=== PATIENT | male | born 1955 | race Caucasian/White ===

== ENCOUNTER → 2016-08-20 | Outpatient (CLI) | payer MEDICARE ==
--- NOTE | 2016-08-20 15:28 | CT ---
EXAMINATION TYPE: CT soft tissue neck w con DATE OF EXAM: 08/20/2016 2:19 PM COMPARISON: NONE HISTORY: 61 year-old male right upper neck mass. TECHNIQUE: Contiguous axial scanning of the neck performed with IV Contrast, patient injected with 10 0 mL of Omnipaque 300. Coronal/sagittal reconstructions performed. CT DLP: 762.98 mGycm Automated exposure control for dose reduction was used. FINDINGS: Visualized intracranial structures, orbits and globes, and mastoid air cells are clear. Mild mucosal thickening within the right ethmoid air cells. The nasopharynx is clear. Mild bilateral palatine tonsillar hypertrophy. Oropharynx otherwise clear. The glottic and subglottic structures as well as the tracheal column are clear. She'll is upper lungs show mild diffuse bronchial wall thickening suggesting bronchitis or chronic asthma. A left anterior chest wall generator device is present and median sternotomy wires as well. The epiglottis and preve rtebral soft tissues are normal. There is a large mixed solid and cystic 2.6 x 2.7 cm mass along the right parotid tail within the sup erficial lobe. Submandibular glands and thyroid gland are satisfactory. No cervical lymphadenopathy or other suspicious neck masses seen. Bones: Mild multilevel degenerative disc disease. Degenerative changes at the C2 dens articulation. IMPRESSION: 1. MIXED SOLID AND CYSTIC 2.7 CM MASS IN THE RIGHT PAROTID TAIL WITHIN THE SUPERFICIAL LOBE. 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 CONSIDER BIOPSY/EXCISION. 2. MILD BILATERAL PALATINE TONSILLAR HYPERTROPHY.
== END | disposition home or self-care (01) ==
LOC: RADCTMAIN 13:46
PROVIDERS: ATTEND Otolaryngology
DX: K11.6 Mucocele of salivary gland (principal); J35.1 Hypertrophy of tonsils
CPT/HCPCS: 70491; Q9967

== ENCOUNTER 2016-10-02 10:40 | Day surgery (SDC) | payer MEDICARE ==
[2016-09-30 12:56] VITALS: BMI 38.4
[~2016-10-02 10:40] MED LIST: DEXAMETHASONE SOD PHOSPHATE 10 MG/ML 1 ML VIAL IV ONE; DEXAMETHASONE SOD PHOSPHATE 4 MG/ML 1 ML VIAL IV ONE; FAMOTIDINE 20 MG/2 ML VIAL IV ONE; HYDROmorphone 1 MG/ML 1 ML SYRINGE IVP PRN; LACTATED RINGERS 1,000 ML IV SCH; MIDAZOLAM 2 MG/2 ML VIAL IV PRN; ONDANSETRON 4 MG/2 ML VIAL IVP ONE; SCOPOLAMINE 1.5MG/72HR PATCH TRANSDERM ONE; ceFAZolin 1,000 MG in DEXTROSE/WATER 1 50ML.BAG IV ONE
[2016-10-02] MEDS ORDERED: LIDOCAINE 1% 20 ML VIAL (10MG/ML) FOR IV START INTRADERMA ONE (12:29)
[2016-10-02 12:32] VITALS: TEMP 97
[2016-10-02 12:46] LABS: Potassium 4.8 mmol/L (3.5-5.1)
[2016-10-02] MEDS ORDERED: LIDOCAINE 1% INJ 10MG/ML (20 ML MDV) ONE (13:01)
[2016-10-02] MEDS ORDERED: fentaNYL (PF) 50 MCG/ML 2 ML AMP ONE (13:01)
[2016-10-02] MEDS ORDERED: MIDAZOLAM 2 MG/2 ML VIAL ONE (13:01)
[2016-10-02] MEDS ORDERED: PROPOFOL 10 MG/ML 20 ML VIAL IV ONE (13:01)
[2016-10-02] MEDS ORDERED: SUCCINYLCHOLINE CHLORIDE VIAL 200 MG/10 ML VIAL IV ONE (13:01)
[2016-10-02] MEDS ORDERED: LIDOCAINE 1%-EPI 1:100,000 20 ML VIAL SQ ONE (13:23)
[2016-10-02] MEDS ORDERED: BACITRACIN OINT 1 EACH PACKET TOPICAL ONE (14:22)
--- NOTE | 2016-10-02 14:34 | P.OP ---
Date of Procedure: 10/02/16 Preoperative Diagnosis: Right parotid lesion Postoperative Diagnosis: Same Procedure(s) Performed: Right superficial parotidectomy EMG facial nerve monitoring Implants: Anesthesia: SILVERA Surgeon: Adam Ruano Estimated Blood Loss (ml): 5 Pathology: other (Right superficial parotidectomy) Condition: stable Disposition: PACU Indications for Procedure: This is a 61-year-old white male with approximate 4 year history of a slowly enlarging right upper neck mass. 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 Operative Findings: Approximate 3 cm well encapsulated right tail of parotid lesion Description of Procedure: Patient was brought in the operative suite and placed in a supine position. The patient underwent induction of general anesthesia with oral endotracheal intubation without difficulty. The patient was prepped and draped in usual aseptic fashion including using the NIM II facial nerve monitor with the monitors placed and tested and they were working well. 1% lidocaine with 1 100, 000 epinephrine was infused subcutaneously at the incision site. A doubly modified Marco incision was made starting in the lower pre-recur crease and extending down onto the upper neck transversely. This was carried sharply through the skin and subcutaneous tissue as well as the platysma layer. The mass was located just anterior to the sternocleidomastoid muscle and was well delineated. This was mostly in the neck. This was dissected from the surrounding tissue including off of the sternocleidomastoid muscle with identification of the posterior regular nerve which was left intact. Dissection then continued inferiorly and deeply to the lower edge of the posterior digastric muscle. Dissection then continued from lateral to medial at the superior aspect of the mass dissecting the mass from the surrounding parotid tissue with a cuff of normal parotid tissue left where possible. The marginal mandibular branch of the facial nerve was identified just superior to the mass and therefore was dissected from the tissue with blunt dissection. This was left intact. The mass was then ultimately excised from the surrounding tissue grossly entirely and sent for permanent section. The wound was inspected. The marginal mandibular branch of the facial nerve was identified intact and stimulated well 0.5 mA with the nerve probe. Copious irrigation was performed with sterile normal saline. And a 9-Bulgarian round drain was placed through separate stab incision. This was sutured to the skin with a 2-0 silk suture. The platysma and subcutaneous layers were closed with inverted interrupted 5-0 Vicryl suture skin closed with running locking 4-0 Prolene suture bacitracin ointment and a sterile dressing were placed. The patient was then allowed to emerge from general anesthesia having tolerated procedure well was extubated in the operative suite and transferred postoperative recovery area in satisfactory condition.
[2016-10-02 15:15] VITALS: RESP 18
[2016-10-02] MEDS ORDERED: HYDROcodone/APAP 7.5-325MG 1 EACH TAB PO ONE (15:25)
[2016-10-02 15:34] VITALS: BP 136/89; PULSE 75
== END 2016-10-02 15:49 | disposition home or self-care (01) ==
LOC: OR 10:40
PROVIDERS: ATTEND Otolaryngology
DX: D11.0 Benign neoplasm of parotid gland (principal); I10 Essential (primary) hypertension; E78.5 Hyperlipidemia, unspecified; F17.200 Nicotine dependence, unspecified, uncomplicated; Z95.5 Presence of coronary angioplasty implant and graft; Z95.0 Presence of cardiac pacemaker; Z88.8 Allergy status to other drugs, medicaments and biological substances; Z79.899 Other long term (current) drug therapy; Z79.82 Long term (current) use of aspirin
CPT/HCPCS: 80051; 88307; 42415; J2250; J0330; J1100; J2405; J2001; J3010; J0690; J2704

== ENCOUNTER 2019-01-06 20:17 | Emergency (ER) | payer MEDICARE, SELFPAY ==
[2019-01-06 20:25] VITALS: RESP 18
[2019-01-06 21:59] LABS: Basophils # (A) 0.1 k/uL (0-0.2); Basophils % (A) 1 %; Eosinophils # (A) 0.3 k/uL (0-0.7); Eosinophils % (A) 3 %; HCT 39.7 % (39.0-53.0); Lymphocytes # (A) 1.8 k/uL (1.0-4.8); Lymphocytes % (A) 18 %; MCH 30.9 pg (25.0-35.0); MCHC 32.8 g/dL (31.0-37.0); MCV 94.2 fL (80.0-100.0); Monocytes # (A) 0.5 k/uL (0-1.0); Monocytes % (A) 5 %; Neutrophils # (A) 7.3 k/uL (1.3-7.7); Neutrophils % (A) 72 %; Platelet Count 133 k/uL (150-450); RBC 4.21 m/uL (4.30-5.90); RDW 13.4 % (11.5-15.5); WBC 10.1 k/uL (3.8-10.6)
[2019-01-06 22:11] LABS: Albumin 3.7 g/dL (3.5-5.0); Total Protein 6.4 g/dL (6.3-8.2)
[2019-01-06 22:12] LABS: Potassium 4.6 mmol/L (3.5-5.1)
--- NOTE | 2019-01-06 22:12 | XR ---
EXAMINATION TYPE: XR KUB DATE OF EXAM: 01/06/2019 COMPARISON: NONE HISTORY: Pain and bloating TECHNIQUE: 2 views upright FINDINGS: There is no sign of intestinal obstruction or pneumoperitoneum. Fecal pattern is normal. Th ere are no pathologic calcifications. IMPRESSION: Nonacute abdomen.
[2019-01-06 23:20] LABS: Appearance,Urine Clear (Clear); Bilirubin,Urine Negative (Negative); Blood,Urine Negative (Negative); Color,Urine Yellow; Glucose,Urine (UA) Negative (Negative); Ketones,Urine Negative (Negative); Leukocyte Esterase,Urine Negative (Negative); Nitrite,Urine Negative (Negative); PH, Urine 5.5 (5.0-8.0); Protein,Urine Trace (Negative); Specific Gravity,Urine 1.029 (1.001-1.035)
[2019-01-06 23:22] VITALS: BP 137/79; PULSE 68
--- NOTE | 2019-01-06 23:38 | ED ---
Abdominal Pain HPI - General Chief Complaint: Abdominal Pain Stated Complaint: Abdominal Pain Time Seen by Provider: 01/06/19 20:44 Source: patient, EMS Mode of arrival: EMS - History of Present Illness Initial Comments: 63-year-old male patient presents to the emergency department today for evaluation of upper abdominal discomfort. Patient states that approximately 2 hours ago he developed pressure over the upper abdomen. Patient states this did radiate through to the back. Patient denies any nausea, vomiting with this. Denies any fever or chills. Denies any constipation or diarrhea. Patient states he did start metformin 2 days ago. Patient denies any history of ab dominal surgery. Denies chest pain, shortness of breath, dizziness, or weakness. Patient denies any recent rash, fever, chills, shortness breath, chest pain, back pain, numbness, tingling, dizziness, weakness, hematuria, dysuria, urinary urgency, urinary frequency, headache, visual changes, or any other complaints. - Related Data Home Medications Medication Instructions Recorded Confirmed Aspirin 325 mg PO DAILY 09/30/16 01/06/19 Atorvastatin [Lipitor] 80 mg PO HS 09/30/16 01/06/19 Furosemide [Lasix] 40 mg PO DAILY@1700 09/30/16 01/06/19 Ramipril 2.5 mg PO HS 09/30/16 01/06/19 Apremilast [Otezla] 30 mg PO BID 01/06/19 01/06/19 Carvedilol [Coreg] 12.5 mg PO BID 01/06/19 01/06/19 Ezetimibe [Zetia] 10 mg PO HS 01/06/19 01/06/19 Ubidecarenone [Co Q-10] 100 mg PO DAILY 01/06/19 01/06/19 metFORMIN HCL [Glucophage] 500 mg PO BID 01/06/19 01/06/19 Allergies Allergy/AdvReac Type Severity Reaction Status Date / Time sertraline [From Zoloft] AdvReac Confusion Verified 01/06/19 20:48 simvastatin [From Zocor] AdvReac muscle Verified 01/06/19 20:48 cramping Review of Systems ROS Statement: Those systems with pertinent positive or pertinent negative responses have been documented in the HPI. ROS Other: All systems not noted in ROS Statement are negative. Past Medical History Past Medical History: Diabetes Mellitus, Hyperlipidemia, Hypertension, Myocardial Infarction ([place]), Skin Disorder Additional Past Medical History / Comment(s): Hx Psoriasis. Last Myocardial Infarction Date:: 03/1995 History of Any Multi-Drug Resistant Organisms: None Reported Past Surgical History: Coronary Bypass/CABG, Pacemaker Additional Past Surgical History / Comment(s): Triple Bypass Surgery 07/2001. Past Anesthesia/Blood Transfusion Reactions: No Reported Reaction Type of Cardiac Device: Permanent Pacemaker Device Placement Date:: 04/2014 Past Psychological History: No Psychological Hx Reported Smoking Status: Current every day smoker Past Alcohol Use History: Rare Past Drug Use History: None Reported - Past Family History Brother(s) Family Medical History: Cancer Additional Family Medical History / Comment(s): Prostate Cancer. Sister(s) Family Medical History: Cancer Additional Family Medical History / Comment(s): Thyroid Cancer General Exam General appearance: alert, in no apparent distress, other Eye exam: Present: normal appearance, PERRL, EOMI. Absent: scleral icterus, conjunctival injection, periorbital swelling ENT exam: Present: normal exam, normal oropharynx, mucous membranes moist Respiratory exam: Present: normal lung sounds bilaterally. Absent: respiratory distress, wheezes, rales, rhonchi, stridor Cardiovascular Exam: Present: regular rate, normal rhythm, normal heart sounds. Absent: systolic murmur, diastolic murmur, rubs, gallop, clicks GI/Abdominal exam: Present: soft, normal bowel sounds. Absent: distended, tenderness, guarding, rebound, rigid Neurological exam: Present: alert, oriented X3, CN II-XII intact Psychiatric exam: Present: normal affect, normal mood Skin exam: Present: warm, dry, intact, normal color. Absent: rash Course Vital Signs 01/06/19 01/06/19 01/07/19 20:20 23:20 00:12 Temperature 97.4 F L 97.7 F Pulse Rate 67 68 Respiratory 18 18 Rate Blood Pressure 147/79 137/79 O2 Sat by Pulse 99 97 Oximetry Medical Decision Making - Medical Decision Making 63-year-old male patient presents to the emergency department today for evaluation of upper abdominal discomfort. The patient states this started a couple of hours ago. Patient states the symptoms have resolved. Patient does report starting metformin 2 days ago. Denies any fever or chills nausea or vomiting. Physical examination did reveal soft nontender abdomen. Labs revi ewed and are unremarkable. KUB x-ray was obtained and was unremarkable. I did discuss findings and results with the patient. Patient states the symptoms are still relieved. He'll be discharged at this time to follow-up with his primary care physician for recheck in 1-2 days. Return parameters were discussed in detail. He verbalizes understanding and agrees with this plan. - Lab Data Result diagrams: 01/06/19 21:48 01/06/19 21:48 Lab Results 01/06/19 01/06/19 01/06/19 Range/Units 21:48 21:48 23:05 WBC 10.1 (3.8-10.6) k/uL RBC 4.21 L (4.30-5.90) m/uL Hgb 13.0 (13.0-17.5) gm/dL Hct 39.7 (39.0-53.0) % MCV 94.2 (80.0-100.0) fL MCH 30.9 (25.0-35.0) pg MCHC 32.8 (31.0-37.0) g/dL RDW 13.4 (11.5-15.5) % Plt Count 133 L (150-450) k/uL Neutrophils % 72 % Lymphocytes % 18 % Monocytes % 5 % Eosinophils % 3 % Basophils % 1 % Neutrophils # 7.3 (1.3-7.7) k/uL Lymphocytes # 1.8 (1.0-4.8) k/uL Monocytes # 0.5 (0-1.0) k/uL Eosinophils # 0.3 (0-0.7) k/uL Basophils # 0.1 (0-0.2) k/uL Sodium 140 (137-145) mmol/L Potassium 4.6 (3.5-5.1) mmol/L Chloride 105 (98-107) mmol/L Carbon Dioxide 29 (22-30) mmol/L Anion Gap 6 mmol/L BUN 22 H (9-20) mg/dL Creatinine 1.10 (0.66-1.25) mg/dL Est GFR (CKD-EPI)AfAm 83 (>60 ml/min/1.73 sqM) Est GFR (CKD-EPI)NonAf 72 (>60 ml/min/1.73 sqM) Glucose 115 H (74-99) mg/dL Calcium 9.0 (8.4-10.2) mg/dL Total Bilirubin 1.0 (0.2-1.3) mg/dL AST 56 (17-59) U/L ALT 46 (21-72) U/L Alkaline Phosphatase 146 H (38-126) U/L Total Protein 6.4 (6.3-8.2) g/dL Albumin 3.7 (3.5-5.0) g/dL Amylase 83 (30-110) U/L Lipase 261 (23-300) U/L Urine Color Yellow Urine Appearance Clear (Clear) Urine pH 5.5 (5.0-8.0) Ur Specific Isabel 1.029 (1.001-1.035) Urine Protein Trace H (Negative) Urine Glucose (UA) Negative (Negative) Urine Ketones Negative (Negative) Urine Blood Negative (Negative) Urine Nitrite Negative (Negative) Urine Bilirubin Negative (Negative) Urine Urobilinogen 2.0 (<2.0) mg/dL Ur Leukocyte Esterase Negative (Negative) - Radiology Data Radiology results: report reviewed, image reviewed Two-view x-ray of the abdomen is obtained. Report was reviewed in its entirety. Impression by Dr. Marshall shows nonacute abdomen Disposition Clinical Impression: Abdominal pain Disposition: HOME SELF-CARE Condition: Good Instructions (If sedation given, give patient instructions): Abdominal Pain (ED) Additional Instructions: Increase fluids. Rest. Follow-up through primary care physician for recheck in 1-2 days. Return to the emergency department immediately for any new, worsening, or concerning symptoms. Is patient prescribed a controlled substance at d/c from ED?: No Referrals: Fan Garcia MD [Primary Care Provider] - 1-2 days Time of Disposition: 23:38
[2019-01-06] MEDS ORDERED: MAG HYDROX/AL HYDROX/SIMETH 30 ML, HYOSCYAMINE ELIXIR 10 ML, CIMETIDINE HCL 300 MG, LID... PO STA ×4 (23:49)
[2019-01-07 00:13] VITALS: TEMP 97.7
== END 2019-01-07 00:11 | disposition home or self-care (01) ==
LOC: EC 20:17
DX: R10.10 Upper abdominal pain, unspecified (principal); M54.9 Dorsalgia, unspecified; E11.9 Type 2 diabetes mellitus without complications; E78.5 Hyperlipidemia, unspecified; I10 Essential (primary) hypertension; I25.2 Old myocardial infarction; L40.9 Psoriasis, unspecified; F17.200 Nicotine dependence, unspecified, uncomplicated; Z88.8 Allergy status to other drugs, medicaments and biological substances; Z79.82 Long term (current) use of aspirin; Z79.84 Long term (current) use of oral hypoglycemic drugs; Z79.899 Other long term (current) drug therapy; Z95.0 Presence of cardiac pacemaker; Z95.1 Presence of aortocoronary bypass graft
CPT/HCPCS: 36415; 74018; 80053; 81003; 82150; 83690; 85025; 99284

== ENCOUNTER → 2019-11-12 | Outpatient (CLI) | payer MEDICARE ==
[2019-11-12 11:52] LABS: Basophils % (A) 1 %; Eosinophils # (A) 0.3 k/uL (0-0.7); Eosinophils % (A) 3 %; HCT 41.6 % (39.0-53.0); Lymphocytes # (A) 2.9 k/uL (1.0-4.8); Lymphocytes % (A) 38 %; MCH 29.8 pg (25.0-35.0); MCHC 31.2 g/dL (31.0-37.0); MCV 95.4 fL (80.0-100.0); Mean Platelet Volume 8.6; Monocytes # (A) 0.5 k/uL (0-1.0); Monocytes % (A) 6 %; Neutrophils # (A) 3.9 k/uL (1.3-7.7); Neutrophils % (A) 50 %; Platelet Count 165 k/uL (150-450); RBC 4.36 m/uL (4.30-5.90); RDW 13.9 % (11.5-15.5); WBC 7.8 k/uL (3.8-10.6)
== END | disposition home or self-care (01) ==
LOC: LABWHC1 09:57
PROVIDERS: ATTEND Physician Assistant
DX: L40.0 Psoriasis vulgaris (principal); Z79.899 Other long term (current) drug therapy
CPT/HCPCS: 36415; 85025; 86480

== ENCOUNTER 2020-02-28 06:16 | Day surgery (SDC) | payer MEDICARE ==
[2020-02-24 11:51] VITALS: BMI 34.4
[~2020-02-28 06:16] MED LIST changes: -DEXAMETHASONE SOD PHOSPHATE 10 MG/ML 1 ML VIAL IV ONE; -DEXAMETHASONE SOD PHOSPHATE 4 MG/ML 1 ML VIAL IV ONE; -FAMOTIDINE 20 MG/2 ML VIAL IV ONE; -HYDROmorphone 1 MG/ML 1 ML SYRINGE IVP PRN; -MIDAZOLAM 2 MG/2 ML VIAL IV PRN; -ONDANSETRON 4 MG/2 ML VIAL IVP ONE; -SCOPOLAMINE 1.5MG/72HR PATCH TRANSDERM ONE; -ceFAZolin 1,000 MG in DEXTROSE/WATER 1 50ML.BAG IV ONE
[2020-02-28 06:39] VITALS: TEMP 97.5
[2020-02-28] MEDS ORDERED: LIDOCAINE 1% (10MG/ML) FOR IV START INTRADERMA ONE (06:39)
[2020-02-28] MEDS ORDERED: LACTATED RINGERS 1,000 ML IV ONE (06:39)
[2020-02-28 06:49] LABS: Glucose,Whole Blood 104 mg/dL (75-99)
[2020-02-28] MEDS ORDERED: LIDOCAINE 1% INJ 10MG/ML (20 ML MDV) ONE (07:40)
[2020-02-28] MEDS ORDERED: PROPOFOL 10 MG/ML 20 ML VIAL IV ONE (07:40)
--- NOTE | 2020-02-28 08:18 | P.PCN ---
Date of Procedure: 02/28/20 Description of Procedure: BRIEF HISTORY: Patient is a 64-year-old male presented for outpatient colonoscopy for screening for neoplasm of the colon. No family history of colon cancer. No change in bowel habits or blood per rectum. No prior colonoscopy. PROCEDURE PERFORMED: Colonoscopy with polypectomy. PREOPERATIVE DIAGNOSIS: Screening for malignant neoplasm of the colon, no prior colonoscopy. ESTIMATED BLOOD LOSS: Minimal. IV sedation per Anesthesia. PROCEDURE: After informed consent was obtained, the patient, was brought into the endoscopy unit. IV sedation was administered by Anesthesia under continuous monitoring. Digital rectal examination was normal. Initially the Olympus CF-190 flexible video colonoscope was then inserted in the rectum, gradually advanced into the cecum without any difficulty. Careful examination was performed as the scope was gradually being withdrawn. Ileocecal valve and the appendiceal orifice were visualized and appeared normal. Prep was excellent. Mucosa of the cecum, ascending colon, transverse colon, descending colon, sigmoid colon, and rectum appeared normal. Multiple diverticula both Small enlarged found in the left colon. 3 diminutive polyps measuring 2-3 mm in size removed from the hepatic flexure, sigmoid colon and rectum with cold forceps.. Retroflexion was performed in the rectum and no lesions were seen. The patient tolerated the procedure well. IMPRESSION: 3 diminutive polyps removed from the rectum, sigmoid and hepatic flexure with cold forceps. Mild left colonic diverticulosis. RECOMMENDATIONS: Findings of this examination were discussed with the patient . Okay to resume diet. Okay to resume medications. Await pathology from polypectomy. Would recommend repeat colonoscopy in 5 years for colon polyps, pending pathology.
[2020-02-28 08:32] VITALS: BP 118/73; PULSE 66; RESP 17
== END 2020-02-28 08:52 | disposition home or self-care (01) ==
LOC: ORWHC2ENDO 06:16
PROVIDERS: ATTEND Internal Medicine
DX: Z12.11 Encounter for screening for malignant neoplasm of colon (principal); D12.3 Benign neoplasm of transverse colon; K62.1 Rectal polyp; K57.30 Diverticulosis of large intestine without perforation or abscess without bleeding; I25.10 Atherosclerotic heart disease of native coronary artery without angina pectoris; I11.0 Hypertensive heart disease with heart failure; I50.9 Heart failure, unspecified; E78.5 Hyperlipidemia, unspecified; E11.9 Type 2 diabetes mellitus without complications; F17.200 Nicotine dependence, unspecified, uncomplicated; Z95.810 Presence of automatic (implantable) cardiac defibrillator; Z95.1 Presence of aortocoronary bypass graft; Z95.5 Presence of coronary angioplasty implant and graft; Z79.82 Long term (current) use of aspirin; Z79.84 Long term (current) use of oral hypoglycemic drugs; Z79.899 Other long term (current) drug therapy; Z88.8 Allergy status to other drugs, medicaments and biological substances
CPT/HCPCS: 88305; 45380; J2001; J2704

== ENCOUNTER 2020-04-29 10:45 | Inpatient (IN) | payer MEDICARE ==
[2020-04-29] MEDS ORDERED: ASPIRIN 81 MG PO STA (11:12)
[2020-04-29] MEDS ORDERED: NITROGLYCERIN OINT 1 INCH/GM PACKET TOPICAL STA (11:12)
--- NOTE | 2020-04-29 11:28 | ED ---
General Adult HPI - General Chief complaint: Chest Pain Stated complaint: chest pain Time Seen by Provider: 04/29/20 10:50 Source: patient, RN notes reviewed, old records reviewed Mode of arrival: ambulatory Limitations: no limitations - History of Present Illness Initial comments: This is a 64-year-old male who presents emergency Department complaining of having chest pain since yesterday morning. Patient states it lasted for about 15-20 minutes each time is calm per patient states he usually takes an aspirin and he thinks that might be helping. Patient denies any difficulty breathing. Patient denies any shortness of breath. Patient denies any diaphoretic episodes. Patient denies abdominal pain patient denies nausea vomiting diarrhea. Patient denies any recent fever chills or cough per patient is a smoker who has diabetes and has high cholesterol has had bypass surgery and has one stent. Patient states he's got chronic swelling to legs left legs always. The right he has not noted any changes to the legs. - Related Data Home Medications Medication Instructions Recorded Confirmed Aspirin 325 mg PO DAILY 09/30/16 04/29/20 Atorvastatin [Lipitor] 80 mg PO HS 09/30/16 04/29/20 Ramipril 2.5 mg PO HS 09/30/16 04/29/20 Carvedilol [Coreg] 12.5 mg PO BID 01/06/19 04/29/20 Ezetimibe [Zetia] 10 mg PO HS 01/06/19 04/29/20 metFORMIN HCL [Glucophage] 500 mg PO BID 01/06/19 04/29/20 [place] Red 500 mg PO DAILY 02/24/20 04/29/20 Apremilast [Otezla] 30 mg PO BID 04/29/20 04/29/20 Cyanocobalamin/Cobamamide [Vitamin 2 tab SL DAILY 04/29/20 04/29/20 B-12 5,000 Mcg Tab Sl] Allergies Allergy/AdvReac Type Severity Reaction Status Date / Time sertraline [From Zoloft] AdvReac Confusion Verified 04/29/20 11:30 simvastatin [From Zocor] AdvReac muscle Verified 04/29/20 11:30 cramping Review of Systems ROS Statement: Those systems with pertinent positive or pertinent negative responses have been documented in the HPI. ROS Other: All systems not noted in ROS Statement are negative. Past Medical History Past Medical History: Coronary Artery Disease (CAD), Heart Failure, Diabetes Mellitus, Hyperlipidemia, Hypertension, Myocardial Infarction ([place]), Skin Disorder Additional Past Medical History / Comment(s): Hx Psoriasis. ICD, [facility] [employer]. Edema BLE, wears compression socks. Cologuard pos Last Myocardial Infarction Date:: 03/1995 History of Any Multi-Drug Resistant Organisms: None Reported Past Surgical History: AICD, Coronary Bypass/CABG, Heart Catheterization With Stent, Pacemaker Additional Past Surgical History / Comment(s): Triple Bypass Surgery 07/2001. Benign tumor exc Rt post ear. Past Anesthesia/Blood Transfusion Reactions: No Reported Reaction Date of Last Stent Placement:: 04/1995 Type of Cardiac Device: Permanent Pacemaker, AICD Device Placement Date:: 04/2014 Past Psychological History: No Psychological Hx Reported Smoking Status: Current every day smoker Past Alcohol Use History: None Reported Past Drug Use History: None Reported - Past Family History Brother(s) Family Medical History: Cancer Additional Family Medical History / Comment(s): Prostate Cancer. Sister(s) Family Medical History: Cancer Additional Family Medical History / Comment(s): Thyroid Cancer General Exam - General Exam Comments Initial Comments: GENERAL: Patient is well-developed and well-nourished. Patient is nontoxic and well- hydrated and is in mild distress. ENT: Neck is soft and supple. No significant lymphadenopathy is noted. Oropharynx is clear. Moist mucous membranes. Neck has full range of motion without eliciting any pain. EYES: The sclera were anicteric and conjunctiva were pink and moist. Extraocular movements were intact and pupils were equal round and reactive to light. Eyel ids were unremarkable. PULMONARY: Unlabored respirations. Good breath sounds bilaterally. No audible rales rhonchi or wheezing was noted. CARDIOVASCULAR: There is a regular rate and rhythm without any murmurs gallops or rubs. ABDOMEN: Soft and nontender with normal bowel sounds. SKIN: Skin is clear with no lesions or rashes and otherwise unremarkable. NEUROLOGIC: Patient is alert and oriented x3. Cranial nerves II through XII are grossly intact. Motor and sensory are also intact. Normal speech, volume and content. Symmetrical smile. MUSCULOSKELETAL: Normal extremities with adequate strength and full range of motion. 2+ edema by lateral legs left greater than right LYMPHATICS: No significant lymphadenopathy is noted PSYCHIATRIC: Normal psychiatric evaluation. Limitations: no limitations Course Vital Signs 04/29/20 04/29/20 10:49 11:44 Temperature 98.1 F Pulse Rate 73 67 Respiratory 18 18 Rate Blood Pressure 127/79 103/67 O2 Sat by Pulse 100 96 Oximetry Medical Decision Making - Medical Decision Making EKG shows normal sinus rhythm at 73 bpm VA interval is 200 QRS is 96 QT interval 390 QTC is 429. EKG shows T-wave inversions in V5 and V6 as well as 1 and aVL. Chest x-ray shows no acute abnormality. Knee. Patient remained chest pain-free throughout his ED stay however with his extensive history and risk factors I started the patient on heparin for unstable angina. I spoke with Dr. Lira agreed to admit the patient admitted the patient I consult cardiology continued heparin Nitropaste on the floor. - Lab Data Result diagrams: 04/29/20 11:20 04/29/20 11:20 Lab Results 04/29/20 04/29/20 04/29/20 Range/Units 11:20 11:20 11:20 WBC 5.8 (3.8-10.6) k/uL RBC 4.25 L (4.30-5.90) m/uL Hgb 13.2 (13.0-17.5) gm/dL Hct 39.0 (39.0-53.0) % MCV 91.8 (80.0-100.0) fL MCH 31.2 (25.0-35.0) pg MCHC 33.9 (31.0-37.0) g/dL RDW 13.4 (11.5-15.5) % Plt Count 159 (150-450) k/uL MPV 8.3 Neutrophils % 51 % Lymphocytes % 34 % Monocytes % 7 % Eosinophils % 5 % Basophils % 1 % Neutrophils # 2.9 (1.3-7.7) k/uL Lymphocytes # 2.0 (1.0-4.8) k/uL Monocytes # 0.4 (0-1.0) k/uL Eosinophils # 0.3 (0-0.7) k/uL Basophils # 0.1 (0-0.2) k/uL PT 10.3 (9.0-12.0) sec INR 1.0 (<1.2) APTT 22.1 (22.0-30.0) sec Sodium 137 (137-145) mmol/L Potassium 4.5 (3.5-5.1) mmol/L Chloride 106 (98-107) mmol/L Carbon Dioxide 27 (22-30) mmol/L Anion Gap 4 mmol/L BUN 13 (9-20) mg/dL Creatinine 0.91 (0.66-1.25) mg/dL Est GFR (CKD-EPI)AfAm >90 (>60 ml/min/1.73 sqM) Est GFR (CKD-EPI)NonAf 89 (>60 ml/min/1.73 sqM) Glucose 111 H (74-99) mg/dL Calcium 9.0 (8.4-10.2) mg/dL Magnesium 1.9 (1.6-2.3) mg/dL Total Bilirubin 0.7 (0.2-1.3) mg/dL AST 25 (17-59) U/L ALT 25 (4-49) U/L Alkaline Phosphatase 94 (38-126) U/L Troponin I (0.000-0.034) ng/mL Total Protein 6.1 L (6.3-8.2) g/dL Albumin 3.5 (3.5-5.0) g/dL 04/29/20 Range/Units 11:20 WBC (3.8-10.6) k/uL RBC (4.30-5.90) m/uL Hgb (13.0-17.5) gm/dL Hct (39.0-53.0) % MCV (80.0-100.0) fL MCH (25.0-35.0) pg MCHC (31.0-37.0) g/dL RDW (11.5-15.5) % Plt Count (150-450) k/uL MPV Neutrophils % % Lymphocytes % % Monocytes % % Eosinophils % % Basophils % % Neutrophils # (1.3-7.7) k/uL Lymphocytes # (1.0-4.8) k/uL Monocytes # (0-1.0) k/uL Eosinophils # (0-0.7) k/uL Basophils # (0-0.2) k/uL PT (9.0-12.0) sec INR (<1.2) APTT (22.0-30.0) sec Sodium (137-145) mmol/L Potassium (3.5-5.1) mmol/L Chloride (98-107) mmol/L Carbon Dioxide (22-30) mmol/L Anion Gap mmol/L BUN (9-20) mg/dL Creatinine (0.66-1.25) mg/dL Est GFR (CKD-EPI)AfAm (>60 ml/min/1.73 sqM) Est GFR (CKD-EPI)NonAf (>60 ml/min/1.73 sqM) Glucose (74-99) mg/dL Calcium (8.4-10.2) mg/dL Magnesium (1.6-2.3) mg/dL Total Bilirubin (0.2-1.3) mg/dL AST (17-59) U/L ALT (4-49) U/L Alkaline Phosphatase (38-126) U/L Troponin I 0.016 (0.000-0.034) ng/mL Total Protein (6.3-8.2) g/dL Albumin (3.5-5.0) g/dL Critical Care Time Critical Care Time: Yes Total Critical Care Time: 35 Disposition Clinical Impression: Unstable angina pectoris Disposition: ADMITTED IP TO THIS HOSP Is patient prescribed a controlled substance at d/c from ED?: No Referrals: Fan Garcia MD [Primary Care Provider] - 1-2 days Time of Disposition: 12:29
[2020-04-29 11:31] LABS: Basophils # (A) 0.1 k/uL (0-0.2); Basophils % (A) 1 %; Eosinophils # (A) 0.3 k/uL (0-0.7); Eosinophils % (A) 5 %; HGB 13.2 gm/dL (13.0-17.5); Lymphocytes % (A) 34 %; MCH 31.2 pg (25.0-35.0); MCHC 33.9 g/dL (31.0-37.0); MCV 91.8 fL (80.0-100.0); Mean Platelet Volume 8.3; Monocytes # (A) 0.4 k/uL (0-1.0); Monocytes % (A) 7 %; Neutrophils # (A) 2.9 k/uL (1.3-7.7); Neutrophils % (A) 51 %; Platelet Count 159 k/uL (150-450); RBC 4.25 m/uL (4.30-5.90); RDW 13.4 % (11.5-15.5); WBC 5.8 k/uL (3.8-10.6)
--- NOTE | 2020-04-29 11:38 | XR ---
EXAMINATION TYPE: XR chest 2V DATE OF EXAM: 04/29/2020 COMPARISON: NONE TECHNIQUE: PA and lateral views submitted. HISTORY: Chest pain FINDINGS: There is no pleural effusion or pneumothorax. Postsurgical change and cardiac device noted. Heart siz e normal. Mild Central coarsened interstitium. Arthropathy of the shoulders. Hypertrophic and degener ative change of the spine. IMPRESSION: 1. Mild Central coarsened interstitium could be associated with early venous congestion or interstiti al pneumonitis. No overt failure or consolidative process.
[2020-04-29 11:42] LABS: ALT 25 U/L (4-49); AST 25 U/L (17-59); African American GFR (CKD) >90 (>60 ml/min/1.73 sqM); Albumin 3.5 g/dL (3.5-5.0); Alkaline Phosphatase 94 U/L (38-126); Anion Gap 4 mmol/L; Blood Urea Nitrogen 13 mg/dL (9-20); Carbon Dioxide 27 mmol/L (22-30); Chloride 106 mmol/L (98-107); Glucose 111 mg/dL (74-99); Magnesium 1.9 mg/dL (1.6-2.3); Non-African American GFR(CKD) 89 (>60 ml/min/1.73 sqM); Potassium 4.5 mmol/L (3.5-5.1); Sodium 137 mmol/L (137-145); Total Bilirubin 0.7 mg/dL (0.2-1.3); Total Protein 6.1 g/dL (6.3-8.2)
[2020-04-29 11:55] LABS: Partial Thromboplastin Time 22.1 sec (22.0-30.0); Prothrombin Time 10.3 sec (9.0-12.0)
[2020-04-29] MEDS ORDERED: HEPARIN SODIUM,PORCINE 5,000 UNIT/ML 1 ML VIAL IV ONE (12:08)
[2020-04-29] MEDS: HEPARIN SOD,PORK IN 0.45% NACL 25,000 UNIT in 0.45% NACL 1 250ML.BAG IV SCH (12:16)
[2020-04-29] MEDS ORDERED: NITROGLYCERIN SL TABS 0.4 MG TAB SUBLINGUAL PRN (12:30)
[2020-04-29 16:45] LABS: Glucose,Whole Blood 99 mg/dL (75-99)
[2020-04-29] MEDS: carvediloL 12.5 MG TAB PO SCH (17:03)
[2020-04-29] MEDS: metFORMIN 500 MG TAB PO SCH (17:03)
[2020-04-29] MEDS: NITROGLYCERIN OINT 1 INCH/GM PACKET TOPICAL SCH (17:21)
[2020-04-29] MEDS: HEPARIN SODIUM,PORCINE 5,000 UNIT/ML 1 ML VIAL IV PRN (19:56)
--- NOTE | 2020-04-29 20:51 | P.HPIM ---
History of Present Illness H&P Date: 04/29/20 Chief Complaint: Chest pain History of presenting complaint: This is a pleasant 64-year-old patient of Dr. Fan Garcia. 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 Chronic stable medical conditions include coronary artery disease with a bypass in 2001 and a stent to the LAD and 1995. Chronic congestive heart failure EF not known, diabetes, hypertension, hyperlipidemia, psoriasic, ICD. Patient yesterday morning developed pain about part of the chest. Lasted for about 15 minutes episode settled. Had another episode this morning fluids amputation. There was no dizziness no lightheadedness oh perspiration or shortness of breath. No radiation. Decided to come in. Patient in November 2019 did have a negative stress test. Patient's currently symptom-free. On his smart phone. Review of systems: GEN.: None EYES: None HEENT: None NECK: None RESPIRATORY: None CARDIOVASCULAR: As above GASTROINTESTINAL: None GENITOURINARY: None MUSCULOSKELETAL: None LYMPHATICS: None HEMATOLOGICAL: None PSYCHIATRY: None NEUROLOGICAL: None Past medical history to include: Coronary artery disease with bypass in 2001 with stent in 1995, AICD, congestive heart failure EF not known, diabetes, hypertension, hyperlipidemia, psoriasic is, chronic lower extremity swelling with estimated compression stockings. Social history: . Less with Daniella. Smokes about 3 quart a packs a day. Since the age of 16. Does use CBD oil. Physical examination: VITAL SIGNS: 98.1, 73, 18, 127/79, 100% on room air GENERAL: BMI 35.9, laying in bed reclining using his smart phone. EYES: Pupils equal. Conjunctiva normal. HEENT: External appearance of nose and ears normal, oral cavity grossly normal. NECK: JVD not raised; masses not palpable. HEART: First and second heart sounds are normal; no edema. LUNGS: Respiratory rate normal; clear to auscultation. ABDOMEN: Soft, nontender, liver spleen not palpable, no masses palpable. PSYCH: Alert and oriented x3; mood and affect normal. NEUROLOGICAL: Cranial nerves grossly intact; no facial asymmetry, power and sensation grossly intact. LYMPHATICS: No lymph nodes palpable in the axilla and neck INVESTIGATIONS, reviewed in the clinical context: White count 5.8 hemoglobin 13.2 platelets 159 potassium 4.5 creatinine 0.91 Troponin I 0.016, 0.015, 0.015 EKG tracing personally reviewed by me-normal sinus rhythm, poor R-wave progression and some T-wave changes Chest x-ray film personally reviewed by me-borderline cardiomegaly, lung hernadez clear Assessment: -Possible unstable angina with pain coming on at rest in a patient with known coronary artery disease patient is an active smoker. Patient to have a negative stress test in November 2019. Patient may benefit from cardiac catheterization -Coronary artery disease with history of stent and coronary bypass -Chronic congestive heart failure, EF not known -Diet is mellitus type II -Hyperlipidemia -Essential hypertension -Psoriasic -AICD -Obesity BMI 35.9 -Chronic nicotine dependence patient cigarette smoker Plan: Patient's currently symptom-free.. Home medications resumed. Cardiology co nsulted. Patient was started on IV heparin the ER. Nitropaste. We'll add nicotine patch. Past Medical History Past Medical History: Coronary Artery Disease (CAD), Heart Failure, Diabetes Mellitus, Hyperlipidemia, Hypertension, Myocardial Infarction ([place]), Skin Disorder Additional Past Medical History / Comment(s): Hx Psoriasis. ICD, [facility]. Edema BLE, wears compression socks. Last Myocardial Infarction Date:: 03/1995 History of Any Multi-Drug Resistant Organisms: None Reported Past Surgical History: AICD, Coronary Bypass/CABG, Heart Catheterization With Stent, Pacemaker Additional Past Surgical History / Comment(s): Triple Bypass Surgery 07/2001. Benign tumor exc Rt post ear. 1 stent to LAD. Past Anesthesia/Blood Transfusion Reactions: No Reported Reaction Date of Last Stent Placement:: 04/1995 Type of Cardiac Device: Permanent Pacemaker, AICD Device Placement Date:: 04/2014 Past Psychological History: No Psychological Hx Reported Smoking Status: Current every day smoker Past Alcohol Use History: None Reported Additional Past Alcohol Use History / Comment(s): Has been smoking 1/2 PPD, since age 16 Past Drug Use History: None Reported Additional Drug Use History / Comment(s): uses CBD oil - Past Family History Brother(s) Family Medical History: Cancer Additional Family Medical History / Comment(s): Prostate Cancer. Sister(s) Family Medical History: Cancer Additional Family Medical History / Comment(s): Thyroid Cancer Medications and Allergies Home Medications Medication Instructions Recorded Confirmed Type Aspirin 325 mg PO DAILY 09/30/16 04/29/20 History Atorvastatin [Lipitor] 80 mg PO HS 09/30/16 04/29/20 History Ramipril 2.5 mg PO HS 09/30/16 04/29/20 History Carvedilol [Coreg] 12.5 mg PO BID 01/06/19 04/29/20 History Ezetimibe [Zetia] 10 mg PO HS 01/06/19 04/29/20 History metFORMIN HCL [Glucophage] 500 mg PO BID 01/06/19 04/29/20 History [place] Red 500 mg PO DAILY 02/24/20 04/29/20 History Apremilast [Otezla] 30 mg PO BID 04/29/20 04/29/20 History Cyanocobalamin/Cobamamide [Vitamin 2 tab SL DAILY 04/29/20 04/29/20 History B-12 5,000 Mcg Tab Sl] Allergies Allergy/AdvReac Type Severity Reaction Status Date / Time sertraline [From Zoloft] AdvReac Confusion Verified 04/29/20 11:30 simvastatin [From Zocor] AdvReac muscle Verified 04/29/20 11:30 cramping Physical Exam Vitals: Vital Signs Temp Pulse Pulse Resp BP BP Pulse Ox 04/29/20 15:00 76 18 04/29/20 13:40 76 18 04/29/20 13:07 97.8 F 76 118/75 100 04/29/20 12:50 98.1 F 67 18 133/67 96 04/29/20 11:44 67 18 103/67 96 04/29/20 10:49 98.1 F 73 18 127/79 100 Intake and Output 04/29/20 04/29/20 04/29/20 06:59 14:59 22:59 Intake Total 600 375.682 Output Total 1 Balance 599 375.682 Intake: Intake, IV Titration 75.682 Amount Heparin Sod,Pork in 0.45% 75.682 NaCl 25,000 unit In 0.45 % NaCl 1 250ml.bag @ 8.82 UNITS/KG/HR 10.002 mls/ hr IV .Q24H [facility] Rx#: [id number] Oral 600 300 Output: Urine/Stool Mix 1 Other: Voiding Method Toilet Toilet # Voids 1 Weight 113.398 kg Results CBC & Chem 7: 04/29/20 11:20 04/29/20 11:20 Labs: Abnormal Lab Results - Last 24 Hours (Table) 04/29/20 04/29/20 04/29/20 Range/Units 11:20 11:20 18:40 RBC 4.25 L (4.30-5.90) m/uL APTT 32.2 H (22.0-30.0) sec Glucose 111 H (74-99) mg/dL Total Protein 6.1 L (6.3-8.2) g/dL Thrombosis Risk Factor Assmnt - Choose All That Apply Any of the Below Risk Factors Present?: Yes Each Factor Represents 1 point: Obesity (BMI >25) Other Risk Factors: Yes Each Risk Factor Represents 2 Points: Age 61-74 years Other congenital or acquired thrombophilia - If yes, enter type in comment: No Thrombosis Risk Factor Assessment Total Risk Factor Score: 3 Thrombosis Risk Factor Assessment Level: Moderate Risk
[2020-04-29 22:41] LABS: Glucose,Whole Blood 121 mg/dL (75-99)
[2020-04-29] MEDS: lisinopriL 10 MG TAB PO SCH (22:47)
[2020-04-29] MEDS: ATORVASTATIN 80 MG TAB PO SCH (22:47)
[2020-04-29] MEDS: EZETIMIBE 10 MG TAB PO SCH (22:48)
[2020-04-29] MEDS: NICOTINE 21MG/24HR PATCH TRANSDERM SCH (22:48)
[2020-04-30] MEDS: NITROGLYCERIN OINT 1 INCH/GM PACKET TOPICAL SCH ×2 (01:17→06:55)
[2020-04-30 02:18] LABS: Cholesterol 111 mg/dL (<200); HDL Cholesterol 28 mg/dL (40-60); LDL Cholesterol,Calculated 62 mg/dL (0-99); Triglycerides 107 mg/dL (<150)
[2020-04-30 06:50] LABS: Glucose,Whole Blood 108 mg/dL (75-99)
[2020-04-30] MEDS: HEPARIN SOD,PORK IN 0.45% NACL 25,000 UNIT in 0.45% NACL 1 250ML.BAG IV SCH (07:52)
[2020-04-30] MEDS ORDERED: [UNRECOGNIZED DRUG - OTHER] SL SCH (09:00)
[2020-04-30] MEDS ORDERED: ASPIRIN 325 MG TAB PO SCH (09:00)
[2020-04-30] MEDS ORDERED: ALPRAZolam 0.5 MG TAB PO PRN (10:49)
[2020-04-30] MEDS ORDERED: NITROGLYCERIN SL TABS 0.4 MG TAB SUBLINGUAL PRN (10:49)
[2020-04-30] MEDS ORDERED: ALPRAZolam 0.25 MG TAB PO PRN (10:49)
[2020-04-30] MEDS: metFORMIN 500 MG TAB PO SCH (10:59)
--- NOTE | 2020-04-30 11:11 | P.CRDCN ---
History of Present Illness Consult date: 04/30/20 History of present illness: CHIEF COMPLAINT: Chest pain HISTORY OF PRESENT ILLNESS: This is a 64-year-old male with a past medical history significant for hypertension, hyperlipidemia, diabetes mellitus, ischemic cardiomyopathy, AICD placement, coronary artery disease with previous stent to the LAD and CABG 3. Patient follows in the office with Dr. Fish. We have been asked to see the patient in consultation for chest pain. Patient examined this morning the bedside. Patient states he woke up Friday around 3 AM and felt a tightness in the middle of his chest. He denied any radiation of the pain. He denies shortness of breath. Denies cough. Denies nausea or vomiting. Patient states he took an aspirin and about 20 minutes later the pain resolved. He states Friday morning around the same time he began having the same symptoms. He reports two episodes of chest pain Friday. He took aspirin again and then came to the ER for further evaluation. At the time of examination is morning, the patient denies any chest pain or pressure. The patient did have a nuclear stress test done in November 2019 which was negative for reversible ischemia. Echocardiogram completed at that time revealed ejection fraction 34%. DIAGNOSTICS: EKG reveals sinus mechanism with T-wave inversions in the lateral leads, similar to previous EKG in the office Chest xray mild central coarsened interstitium could be associated with early venous congestion or interstitial pneumonitis. No overt failure. Laboratory data: WBC 5.8. Hemoglobin 13.2. White count 159. Sodium 137. Potassium 4.5. BUN 13. Creatinine 0.91. Troponin negative 3 Current home cardiac medications include aspirin 325 mg daily, lisinopril 10mg daily, Coreg 12.5 mg twice a day, Lipitor 80 mg daily. Patient reports he used to take lasix but he took himself off of it about a year ago. REVIEW OF SYSTEMS: At the time of my exam: CONSTITUTIONAL: Denies fever or chills. HEENT: Denies blurred vision, vision changes, or eye pain. Denies hemoptysis CARDIOVASCULAR: Denies chest pain, orthopnea, PND or palpitations RESPIRATORY: No shortness of breath. GASTROINTESTINAL: Denies abdominal pain. Denies nausea or vomiting. HEMATOLOGIC: Denies bleeding disorders. GENITOURINARY: Denies any blood in urine. SKIN: Denies pruitis. Denies rash. PHYSICAL EXAM: VITAL SIGNS: Reviewed. GENERAL: Well-developed in no acute distress. HEENT: Head is normocephalic. Pupils are equal, round. Sclerae anicteric. Mucous membranes of the mouth are moist. Neck supple. No JVD or thyromegaly LUNGS: Respirations even and unlabored. Lungs essentially clear to auscultation bilaterally. HEART: Regular rate and rhythm. S1 and S2 heard. ABDOMEN: Soft. Nondistended. Nontender. EXTREMITIES: Normal range of motion. No clubbing or cyanosis. Peripheral pulses intact. 1+ bilateral lower extremity edema, left worse than right NEUROLOGIC: Awake and alert. Oriented x 3. ASSESSMENT: Chest pain Coronary artery disease with previous CABG 3 (2001) and PCI to LAD (1995) Ischemic cardiomyopathy, EF 34% History of AICD Hypertension Hyperlipidemia Diabetes mellitus Nicotine dependence PLAN: An acute coronary event has been ruled out Obtain 2-D echo to assess cardiac structure and function Resume home cardiac medications Continue IV heparin Patient to undergo cardiac cath tomorrow with Dr. Fish Nurse practitioner note has been reviewed by physician. Signing provider agrees with the documented findings, assessment, and plan of care. Past Medical History Past Medical History: Coronary Artery Disease (CAD), Heart Failure, Diabetes Mellitus, Hyperlipidemia, Hypertension, Myocardial Infarction ([place]), Skin Disorder Additional Past Medical History / Comment(s): Hx Psoriasis. ICD, [facility]. Edema BLE, wears compression socks. Last Myocardial Infarction Date:: 03/1995 History of Any Multi-Drug Resistant Organisms: None Reported Past Surgical History: AICD, Coronary Bypass/CABG, Heart Catheterization With Stent, Pacemaker Additional Past Surgical History / Comment(s): Triple Bypass Surgery 07/2001. Benign tumor exc Rt post ear. 1 stent to LAD. Past Anesthesia/Blood Transfusion Reactions: No Reported Reaction Date of Last Stent Placement:: 04/1995 Type of Cardiac Device: Permanent Pacemaker, AICD Device Placement Date:: 04/2014 Past Psychological History: No Psychological Hx Reported Smoking Status: Current every day smoker Past Alcohol Use History: None Reported Additional Past Alcohol Use History / Comment(s): Has been smoking 1/2 PPD, since age 16 Past Drug Use History: None Reported Additional Drug Use History / Comment(s): uses CBD oil - Past Family History Brother(s) Family Medical History: Cancer Additional Family Medical History / Comment(s): Prostate Cancer. Sister(s) Family Medical History: Cancer Additional Family Medical History / Comment(s): Thyroid Cancer Medications and Allergies Home Medications Medication Instructions Recorded Confirmed Type Aspirin 325 mg PO DAILY 09/30/16 04/29/20 History Atorvastatin [Lipitor] 80 mg PO HS 09/30/16 04/29/20 History Ramipril 2.5 mg PO HS 09/30/16 04/29/20 History Carvedilol [Coreg] 12.5 mg PO BID 01/06/19 04/29/20 History Ezetimibe [Zetia] 10 mg PO HS 01/06/19 04/29/20 History metFORMIN HCL [Glucophage] 500 mg PO BID 01/06/19 04/29/20 History [place] Red 500 mg PO DAILY 02/24/20 04/29/20 History Apremilast [Otezla] 30 mg PO BID 04/29/20 04/29/20 History Cyanocobalamin/Cobamamide [Vitamin 2 tab SL DAILY 04/29/20 04/29/20 History B-12 5,000 Mcg Tab Sl] Allergies Allergy/AdvReac Type Severity Reaction Status Date / Time sertraline [From Zoloft] AdvReac Confusion Verified 04/29/20 11:30 simvastatin [From Zocor] AdvReac muscle Verified 04/29/20 11:30 cramping Physical Exam Vitals: Vital Signs Temp Pulse Pulse Resp BP BP Pulse Ox 04/30/20 08:28 75 16 04/30/20 07:36 98.1 F 75 16 95/60 95 04/30/20 02:17 97.9 F 79 18 108/69 94 L 04/29/20 19:47 98.3 F 83 18 118/74 96 04/29/20 15:00 76 18 04/29/20 13:40 76 18 04/29/20 13:07 97.8 F 76 118/75 100 04/29/20 12:50 98.1 F 67 18 133/67 96 04/29/20 11:44 67 18 103/67 96 04/29/20 10:49 98.1 F 73 18 127/79 100 Intake and Output 04/29/20 04/30/20 04/30/20 22:59 06:59 14:59 Intake Total 375.682 89.807 71.488 Balance 375.682 89.807 71.488 Intake: Intake, IV Titration 75.682 89.807 71.488 Amount Heparin Sod,Pork in 0.45% 75.682 89.807 71.488 NaCl 25,000 unit In 0.45 % NaCl 1 250ml.bag @ 8.82 UNITS/KG/HR 10.002 mls/ hr IV .Q24H [facility] Rx#: [id number] Oral 300 Other: Voiding Method Toilet Toilet Toilet # Voids 2 1 1 Results 04/29/20 11:20 04/29/20 11:20 Cardiac Enzymes 04/29/20 04/29/20 04/29/20 Range/Units 11:20 11:20 14:42 AST 25 (17-59) U/L Troponin I 0.016 0.015 (0.000-0.034) ng/mL 04/29/20 Range/Units 18:40 AST (17-59) U/L Troponin I 0.015 (0.000-0.034) ng/mL Coagulation 04/29/20 04/29/20 04/30/20 Range/Units 11:20 18:40 01:42 PT 10.3 (9.0-12.0) sec APTT 22.1 32.2 H 59.0 H (22.0-30.0) sec Lipids 04/30/20 Range/Units 01:42 Triglycerides 107 (<150) mg/dL Cholesterol 111 (<200) mg/dL HDL Cholesterol 28 L (40-60) mg/dL CBC 04/29/20 Range/Units 11:20 WBC 5.8 (3.8-10.6) k/uL RBC 4.25 L (4.30-5.90) m/uL Hgb 13.2 (13.0-17.5) gm/dL Hct 39.0 (39.0-53.0) % Plt Count 159 (150-450) k/uL Comprehensive Metabolic Panel 04/29/20 Range/Units 11:20 Sodium 137 (137-145) mmol/L Potassium 4.5 (3.5-5.1) mmol/L Chloride 106 (98-107) mmol/L Carbon Dioxide 27 (22-30) mmol/L BUN 13 (9-20) mg/dL Creatinine 0.91 (0.66-1.25) mg/dL Glucose 111 H (74-99) mg/dL Calcium 9.0 (8.4-10.2) mg/dL AST 25 (17-59) U/L ALT 25 (4-49) U/L Alkaline Phosphatase 94 (38-126) U/L Total Protein 6.1 L (6.3-8.2) g/dL Albumin 3.5 (3.5-5.0) g/dL Current Medications Generic Name Dose Route Start Last Admin Trade Name Freq PRN Reason Stop Dose Admin Aspirin 81 mg 04/30/20 09:00 Aspirin 81 Mg PO DAILY [facility] Atorvastatin Calcium 80 mg 04/29/20 21:00 04/29/20 22:47 Atorvastatin 80 Mg Tab PO 80 mg HS [facility] Administration Carvedilol 12.5 mg 04/29/20 17:30 04/29/20 17:03 Carvedilol 12.5 Mg Tab PO 12.5 mg BID-W/MEALS [facility] Administration Ezetimibe 10 mg 04/29/20 21:00 04/29/20 22:48 Ezetimibe 10 Mg Tab PO 10 mg HS [facility] Administration Heparin Sodium (Porcine) 0 unit 04/29/20 19:33 04/29/20 19:56 Heparin Sodium,Porcine 5,000 Unit/Ml 1 Ml Vial IV 4,000 unit PER PROTOCOL PRN Administration Low PTT Protocol Heparin Sodium/Sodium Chloride 250 mls @ 10.002 mls/hr 04/29/20 12:15 04/30/20 07:52 25,000 unit/ Sodium Chloride IV 11.82 units/kg/hr .Q24H [facility] 13.404 mls/hr Administration Protocol 8.82 UNITS/KG/HR Lisinopril 10 mg 04/29/20 21:00 04/29/20 22:47 Lisinopril 10 Mg Tab PO 10 mg HS [facility] Administration Metformin HCl 500 mg 04/29/20 17:30 04/29/20 17:03 Metformin 500 Mg Tab PO 500 mg BID-W/MEALS [facility] Administration Nicotine 1 patch 04/29/20 21:00 04/29/20 22:48 Nicotine 21mg/24hr Patch TRANSDERM 1 patch DAILY [facility] Administration Nitroglycerin 0.4 mg 04/29/20 12:30 Nitroglycerin Sl Tabs 0.4 Mg Tab SUBLINGUAL Q5M PRN Chest Pain Nitroglycerin 1 inch 04/29/20 18:00 04/30/20 06:55 Nitroglycerin Oint 1 Inch/Gm Packet TOPICAL Not Given Q6HR [facility] Apremilast [Otezla] 30 mg 04/29/20 21:00 04/30/20 07:33 PO Not Given BID [facility] Intake and Output 04/29/20 04/30/20 04/30/20 22:59 06:59 14:59 Intake Total 375.682 89.807 71.488 Balance 375.682 89.807 71.488 Intake: Intake, IV Titration 75.682 89.807 71.488 Amount Heparin Sod,Pork in 0.45% 75.682 89.807 71.488 NaCl 25,000 unit In 0.45 % NaCl 1 250ml.bag @ 8.82 UNITS/KG/HR 10.002 mls/ hr IV .Q24H [facility] Rx#: [id number] Oral 300 Other: Voiding Method Toilet Toilet Toilet # Voids 2 1 1 04/29/20 11:20 04/29/20 11:20
[2020-04-30] MEDS: NICOTINE 21MG/24HR PATCH TRANSDERM SCH (11:35)
[2020-04-30] MEDS: ASPIRIN 81 MG PO SCH (11:35)
[2020-04-30] MEDS: carvediloL 12.5 MG TAB PO SCH ×2 (11:35→18:16)
[2020-04-30 11:42] LABS: Glucose,Whole Blood 117 mg/dL (75-99)
[2020-04-30] MEDS: INSULIN ASPART (NovoLOG) 100 UNIT/ML VIAL SQ SCH ×3 (11:52→22:29)
[2020-04-30 16:29] LABS: Glucose,Whole Blood 97 mg/dL (75-99)
[2020-04-30 19:55] LABS: Glucose,Whole Blood 126 mg/dL (75-99)
[2020-04-30] MEDS: lisinopriL 10 MG TAB PO SCH (22:30)
[2020-04-30] MEDS: EZETIMIBE 10 MG TAB PO SCH (22:30)
[2020-04-30] MEDS: ATORVASTATIN 80 MG TAB PO SCH (22:30)
--- NOTE | 2020-04-30 22:37 | P.PN ---
Progress Note - Text Progress Note Date: 04/30/20 Chief Complaint: Chest pain History of presenting complaint: This is a pleasant 64-year-old patient of Dr. Fan Garcia. 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 Chronic stable medical conditions include coronary artery disease with a bypass in 2001 and a stent to the LAD and 1995. Chronic congestive heart failure EF not known, diabetes, hypertension, hyperlipidemia, psoriasic, ICD. Patient yesterday morning developed pain about part of the chest. Lasted for about 15 minutes episode settled. Had another episode this morning fluids amputation. There was no dizziness no lightheadedness oh perspiration or shortness of breath. No radiation. Decided to come in. Patient in November 2019 did have a negative stress test. Patient's currently symptom-free. On his smart phone. Admitted with unstable angina. Today-no chest pain. Laying in bed. Cardiac catheterization tomorrow. Review of systems: Was done for constitutional, cardiovascular, GI, pulmonary. relevant finding as above Active Medications Alprazolam (Alprazolam 0.25 Mg Tab) 0.25 mg PO Q6HR PRN PRN Reason: Mild Anxiety Alprazolam (Alprazolam 0.5 Mg Tab) 0.5 mg PO Q6HR PRN PRN Reason: Moderate Anxiety Aspirin (Aspirin 81 Mg) 81 mg PO DAILY [facility] Last Admin: 04/30/20 11:35 Dose: 81 mg Documented by: Aspirin (Aspirin 325 Mg Tab) 325 mg PO ONCE ONE Stop: 05/01/20 07:01 Atorvastatin Calcium (Atorvastatin 80 Mg Tab) 80 mg PO [facility] Last Admin: 04/30/20 22:30 Dose: 80 mg Documented by: Atorvastatin Calcium (Atorvastatin 80 Mg Tab) 80 mg PO ONCE ONE Stop: 05/01/20 07:01 Carvedilol (Carvedilol 12.5 Mg Tab) 12.5 mg PO BID-W/MEALS [facility] Last Admin: 04/30/20 18:16 Dose: 12.5 mg Documented by: Ezetimibe (Ezetimibe 10 Mg Tab) 10 mg PO HS [facility] Last Admin: 04/30/20 22:30 Dose: 10 mg Documented by: Heparin Sodium (Porcine) (Heparin Sodium,Porcine 5,000 Unit/Ml 1 Ml Vial) 0 unit IV PER PROTOCOL PRN; Protocol PRN Reason: Low PTT Last Admin: 04/29/20 19:56 Dose: 4,000 unit Documented by: Heparin Sodium/Sodium Chloride (25,000 unit/ Sodium Chloride) 250 mls @ 10.002 mls/hr IV .Q24H [facility]; Protocol Last Admin: 04/30/20 07:52 Dose: 11.82 units/kg/hr, 13.404 mls/hr Documented by: Sodium Chloride 1,000 ml/ IV (Solution) 1,000 mls @ 113.398 mls/hr IV .Q8H50M ONE Stop: 05/01/20 14:49 Heparin Sodium (Porcine) 10, (000 unit/ Sodium Chloride) 1,001 mls @ 999 mls/hr IRRIGATION ONCE PRN PRN Reason: INTRA-OP Stop: 05/01/20 23:00 Heparin Sodium (Porcine) 2,500 (unit/ Sodium Chloride) 250.5 mls @ 250 mls/hr IRRIGATION ONCE PRN PRN Reason: INTRA-OP Stop: 05/01/20 23:00 Insulin Aspart (Insulin Aspart (Novolog) 100 Unit/Ml Vial) 0 unit SQ ACHS [facility]; Protocol Last Admin: 04/30/20 22:29 Dose: Not Given Documented by: Isosorbide Mononitrate (Isosorbide Mononitrate Er 30 Mg Tab.Er.24h) 30 mg PO DAILY [facility] Lisinopril (Lisinopril 10 Mg Tab) 10 mg PO HS [facility] Last Admin: 04/30/20 22:30 Dose: 10 mg Documented by: Nicotine (Nicotine 21mg/24hr Patch) 1 patch TRANSDERM DAILY [facility] Last Admin: 04/30/20 11:35 Dose: 1 patch Documented by: Nitroglycerin (Nitroglycerin Sl Tabs 0.4 Mg Tab) 0.4 mg SUBLINGUAL Q5M PRN PRN Reason: Chest Pain Nitroglycerin (Nitroglycerin Sl Tabs 0.4 Mg Tab) 0.4 mg SUBLINGUAL Q5M PRN PRN Reason: Chest Pain Apremilast [Otezla] 30 mg PO BID [facility] Last Admin: 04/30/20 22:28 Dose: Not Given Documented by: Past medical history to include: Coronary artery disease with bypass in 2001 with stent in 1995, AICD, congestive heart failure EF not known, diabetes, hypertension, hyperlipidemia, psoriasic is, chronic lower extremity swelling with estimated compression stockings. Social history: . Less with Daniella. Smokes about 3 quart a packs a day. Since the age of 16. Does use CBD oil. Physical examination: VITAL SIGNS: 97.9, 80, 16, 90/60, 96% room air GENERAL: Planning bed, comfortable EYES: Pupils equal. Conjunctiva normal. HEENT: External appearance of nose and ears normal, oral cavity grossly normal. NECK: JVD not raised; masses not palpable. HEART: First and second heart sounds are normal; no edema. LUNGS: Respiratory rate normal; clear to auscultation. ABDOMEN: Soft, nontender, liver spleen not palpable, no masses palpable. PSYCH: Alert and oriented x3; mood and affect normal. INVESTIGATIONS, reviewed in the clinical context: White count 5.8 hemoglobin 13.2 platelets 159 potassium 4.5 creatinine 0.91 Troponin I 0.016, 0.015, 0.015 EKG tracing personally reviewed by me-normal sinus rhythm, poor R-wave progression and some T-wave changes Chest x-ray film personally reviewed by me-borderline cardiomegaly, lung hernadez clear Assessment: -Possible unstable angina with pain coming on at rest in a patient with known coronary artery disease patient is an active smoker. Patient to have a negative stress test in November 2019. Pending cardiac catheterization -Coronary artery disease with history of stent and coronary bypass -Chronic congestive heart failure, EF not known -Diet is mellitus type II -Hyperlipidemia -Essential hypertension -Psoriasic -AICD -Obesity BMI 35.9 -Chronic nicotine dependence patient cigarette smoker Plan: on IV heparin continue other medications. Cardiac catheterization tomorrow.
[2020-05-01] MEDS: HEPARIN SODIUM,PORCINE 5,000 UNIT/ML 1 ML VIAL IV PRN (03:24)
[2020-05-01] MEDS: HEPARIN SOD,PORK IN 0.45% NACL 25,000 UNIT in 0.45% NACL 1 250ML.BAG IV SCH ×2 (05:26→20:55)
[2020-05-01 05:57] VITALS: RESP 16
[2020-05-01] MEDS ORDERED: SODIUM CHLORIDE 0.9% 1,000 ML in EMPTY BAG 1 BAG IV ONE (06:00)
[2020-05-01] MEDS: carvediloL 12.5 MG TAB PO SCH ×3 (06:50→17:40)
[2020-05-01] MEDS ORDERED: ASPIRIN 325 MG TAB PO ONE (07:00)
[2020-05-01] MEDS ORDERED: HEPARIN SODIUM,PORCINE 2,500 UNIT in SODIUM CHLORIDE 0.9% 250 ML IRRIGATION PRN (07:00)
[2020-05-01] MEDS ORDERED: ATORVASTATIN 80 MG TAB PO ONE (07:00)
[2020-05-01] MEDS ORDERED: HEPARIN SODIUM,PORCINE 10,000 UNIT in SODIUM CHLORIDE 0.9% 1,000 ML IRRIGATION PRN (07:00)
[2020-05-01 07:06] LABS: Glucose,Whole Blood 95 mg/dL (75-99)
[2020-05-01] MEDS: INSULIN ASPART (NovoLOG) 100 UNIT/ML VIAL SQ SCH ×4 (08:29→20:58)
[2020-05-01] MEDS: ASPIRIN 81 MG PO SCH (08:48)
[2020-05-01] MEDS: NICOTINE 21MG/24HR PATCH TRANSDERM SCH (08:54)
[2020-05-01] MEDS ORDERED: ISOSORBIDE MONONITRATE ER 30 MG TAB.ER.24H PO SCH (09:00)
--- NOTE | 2020-05-01 10:54 | ECHOF ---
Referral Reason: MEASUREMENTS -------- HEIGHT: 180.3 cm WEIGHT: 113.4 kg BP: 108/70 RVIDd: 3.2 cm (< 3.3) IVSd: 0.7 cm (0.6 - 1.1) LVIDd: 5.0 cm (3.9 - 5.3) LVPWd: 1.1 cm (0.6 - 1.1) IVSs: 0.9 cm LVIDs: 4.2 cm LVPWs: 1.5 cm Ao Diam: 3.4 cm (2.0 - 3.7) AV Cusp: 2.0 cm (1.5 - 2.6) LA Diam: 3.5 cm (2.7 - 3.8) MV EXCURSION: 19.523 mm (> 18.000) MV EF SLOPE: 115 mm/s (70 - 150) EPSS: 1.4 cm MV E Leo: 0.50 m/s MV DecT: 194 ms MV A Leo: 0.40 m/s MV E/A Ratio: 1.25 RAP: 5.00 mmHg RVSP: 24.30 mmHg FINDINGS -------- AICD This was a technically difficult study with suboptimal views. The left ventricular size is normal. Left ventricular wall thickness is normal. Overall left vent ricular systolic function is severely impaired with, an EF between 25 - 30 %. Basal inferior LV wal l motion is hypokinetic. Mid inferior LV wall motion is hypokinetic. Apical anterior LV wall mo tion is hypokinetic. Apical lateral LV wall motion is hypokinetic. Apical inferior LV wall gaurang on is hypokinetic. Apical septum LV wall motion is hypokinetic. Septal Hypokinesis The right ventricle is normal in size. The left atrial size is normal. The right atrial size is normal. Lumason used The aortic valve is trileaflet and appears structurally normal. The mitral valve is normal. There is trace mitral regurgitation. The tricuspid valve appears structurally normal. Trace tricuspid regurgitation present. Right emigdio tricular systolic pressure is normal at < 35 mmHg. Trace/mild (physiologic) pulmonic regurgitation. The aortic root size is normal. IVC Not well visulized. There is no pericardial effusion. CONCLUSIONS -------- 1. The left ventricular size is normal. 2. Left ventricular wall thickness is normal. 3. Overall left ventricular systolic function is severely impaired with, an EF between 25 - 30 %. 4. Basal inferior LV wall motion is hypokinetic. 5. Mid inferior LV wall motion is hypokinetic. 6. Apical anterior LV wall motion is hypokinetic. 7. Apical lateral LV wall motion is hypokinetic. 8. Apical inferior LV wall motion is hypokinetic. 9. Apical septum LV wall motion is hypokinetic. 10. Septal Hypokinesis 11. There is trace mitral regurgitation. 12. Trace tricuspid regurgitation present. 13. Trace/mild (physiologic) pulmonic regurgitation. 14. There is no pericardial effusion. BLISTER PACK OPERATOR: Aure Russell RDCS
[2020-05-01 11:41] LABS: Glucose,Whole Blood 105 mg/dL (75-99)
[2020-05-01] MEDS ORDERED: IV FLUID CONTINUATION 200 ML IV ONE (12:37)
[2020-05-01] MEDS ORDERED: MIDAZOLAM 2 MG/2 ML VIAL IV ONE (12:51)
[2020-05-01] MEDS ORDERED: LIDOCAINE 1% INJ 10MG/ML (20 ML MDV) SQ ONE (12:54)
[2020-05-01] MEDS ORDERED: fentaNYL (PF) 50 MCG/ML 2 ML AMP IV ONE (12:56)
[2020-05-01] MEDS ORDERED: RX INFO: IV CONTRAST WAS GIVEN 1 EACH MISC MISCELLANE PRN (13:18)
[2020-05-01] MEDS ORDERED: IOPAMIDOL-370 125ML BTL INJ ONE (13:22)
[2020-05-01] MEDS ORDERED: SODIUM CHLORIDE 0.9% 1,000 ML IV SCH (13:30)
--- NOTE | 2020-05-01 13:44 | CC ---
CARDIAC CATHETERIZATION REPORT DATE OF SERVICE: May 01, 2020 PERFORMING PHYSICIAN: Alejandro Fish MD. PROCEDURE PERFORMED: 1. Selective right and left coronary angiogram. 2. Left heart catheterization. 3. DALAL to LAD angiogram. 4. SVG to LCX angiogram. 5. SVG to RCA angiogram. INDICATION: This is a 64-year-old gentleman with coronary artery disease and coronary artery bypass grafting, who was admitted to the hospital with chest discomfort concerning for angina and because of that, a heart catheterization was advised. APPROACH: Right common femoral artery. COMPLICATION: None. LEVEL OF SEDATION: Moderate with sedation length of 20 minutes. PROCEDURE DESCRIPTION: After that, the right common femoral artery was cannulated using micropuncture technique, the micropuncture wire passed easily then I placed a 6-Bulgarian sheath at the right radial artery. After that I did selective left and right coronary angiogram with JL4 and JR4 catheters. DALAL to LAD angiogram was performed using JR4 catheter. SVG to left circumflex angiogram was also performed using the JR4 catheter. The SVG to RCA was performed using a multi-purpose catheter. The procedure was completed without any complication. Please note that left heart catheterization was performed using the JR4 catheter. SELECTIVE CORONARY ANGIOGRAM: 1. The left main is a large caliber vessel with distal lesion appeared to be in the range of 30% to 40%. 2. The left circumflex is a large caliber vessel. The left circumflex appeared to be angiographically normal. 3. The ramus intermedius is a large caliber vessel and seems to be angiographically normal. 4. The LAD is 100% occluded in the proximal portion. 5. The RCA is 100% occluded in the proximal portion. CORONARY BYPASSES ANGIOGRAM: 1. The DALAL to LAD is patent. 2. The SVG to LCX has proximal lesion appeared to be in the range of 40% to 50%. 3. The SVG to RCA is patent. HEMODYNAMICS: The LVEDP was 10 to 12 mmHg without significant gradient across the aortic valve. CONCLUSION: 1. Severe triple-vessel coronary artery disease. 2. Patent DALAL to LAD. 3. Intermediate lesion involving the proximal portion of SVG to left circumflex. 4. Patent SVG to RCA. Giving the above anatomy, I did advise maximized medical treatment and follow up with the patient. MMODL / IJN: [id number] /
[2020-05-01 20:50] VITALS: BP 104/62; PULSE 87; TEMP 97.1
[2020-05-01] MEDS: EZETIMIBE 10 MG TAB PO SCH (20:58)
[2020-05-01] MEDS: ATORVASTATIN 80 MG TAB PO SCH (20:58)
[2020-05-01] MEDS: lisinopriL 10 MG TAB PO SCH (20:58)
--- NOTE | 2020-05-02 18:32 | P.DS ---
Providers Date of admission: 05/01/20 16:44 Expected date of discharge: 05/01/20 Attending physician: Celio Lira Consults: 04/29/20 12:30 Consult Physician Urgent Consulting Provider: [facility] Consult Reason/Comments: Unstable angina Do you want consulting provider notified?: Yes Primary care physician: Fan Garcia [facility] Hospital Course: Chief Complaint: Chest pain History of presenting complaint: This is a pleasant 64-year-old patient of Dr. Fan Garcia. [employer] Dr. Jurado. Chronic stable medical conditions include coronary artery disease with a bypass in 2001 and a stent to the LAD and 1995. Chronic congestive heart failure EF not known, diabetes, hypertension, hyperlipidemia, psoriasic, ICD. Patient yesterday morning developed pain about part of the chest. Lasted for about 15 minutes episode settled. Had another episode this morning fluids amputation. There was no dizziness no lightheadedness oh perspiration or shortness of breath. No radiation. Decided to come in. Patient in November 2019 did have a negative stress test. Patient's currently symptom-free. On his smart phone. Admitted with unstable angina. Today-underwent cardiac catheterizationby Dr. Fish. Found to have severe triple-vessel disease. No significant lesion. Per cardiology to be managed medically. Discussed with patient. Questions answered. Discussion and discharge planning more than 35 minutes Consultation: [facility] Past medical history to include: Coronary artery disease with bypass in 2001 with stent in 1995, AICD, congestive heart failure EF not known, diabetes, hypertension, hyperlipidemia, psoriasic is, chronic lower extremity swelling with estimated compression stockings. Social history: . Less with Daniella. Smokes about 3 quart a packs a day. Since the age of 16. Does use CBD oil. Physical examination: VITAL SIGNS: 97.1, 87, 16, 104/62, 96% room air GENERAL: laying in bed,, comfortable EYES: Pupils equal. Conjunctiva normal. HEENT: External appearance of nose and ears normal, oral cavity grossly normal. NECK: JVD not raised; masses not palpable. HEART: First and second heart sounds are normal; no edema. LUNGS: Respiratory rate normal; clear to auscultation. ABDOMEN: Soft, nontender, liver spleen not palpable, no masses palpable. PSYCH: Alert and oriented x3; mood and affect normal. INVESTIGATIONS, reviewed in the clinical context: White count 5.8 hemoglobin 13.2 platelets 159 potassium 4.5 creatinine 0.91 Troponin I 0.016, 0.015, 0.015 EKG tracing personally reviewed by me-normal sinus rhythm, poor R-wave progression and some T-wave changes Chest x-ray film personally reviewed by me-borderline cardiomegaly, lung hernadez clear cardiac catheterization did not show any fixable lesion. Triple-vessel disease. 2-D echocardiogram-EF 25 30%. Multiple wall motion abnormality. Assessment: -unstable angina -Coronary artery disease with history of stent and coronary bypass -Chronic congestive heart failure, EF 25-30%, systolic dysfunction -diabetes mellitus type II -Hyperlipidemia -Essential hypertension -Psoriasic -AICD -Obesity BMI 35.9 -Chronic nicotine dependence patient cigarette smoker disposition: Home Patient Condition at Discharge: Stable Plan - Discharge Summary Discharge Rx Participant: No New Discharge Prescriptions: New Aspirin 81 mg PO DAILY chew Nicotine 21Mg/24Hr Patch [Habitrol] 1 patch TRANSDERM DAILY #14 patch Isosorbide Mononitrate ER [Imdur] 30 mg PO DAILY #30 tab.er.24h Nitroglycerin Sl Tabs [Nitrostat] 0.4 mg SUBLINGUAL Q5M PRN #30 tab PRN Reason: Chest Pain Continue Atorvastatin [Lipitor] 80 mg PO HS Ramipril 2.5 mg PO HS metFORMIN HCL [Glucophage] 500 mg PO BID Ezetimibe [Zetia] 10 mg PO HS Carvedilol [Coreg] 12.5 mg PO BID [place] Red 500 mg PO DAILY Apremilast [Otezla] 30 mg PO BID Cyanocobalamin/Cobamamide [Vitamin B-12 5,000 Mcg Tab Sl] 2 tab SL DAILY Discontinued Aspirin 325 mg PO DAILY Discharge Medication List Atorvastatin [Lipitor] 80 mg PO HS 09/30/16 [History] Ramipril 2.5 mg PO HS 09/30/16 [History] Carvedilol [Coreg] 12.5 mg PO BID 01/06/19 [History] Ezetimibe [Zetia] 10 mg PO HS 01/06/19 [History] metFORMIN HCL [Glucophage] 500 mg PO BID 01/06/19 [History] [place] Red 500 mg PO DAILY 02/24/20 [History] Apremilast [Otezla] 30 mg PO BID 04/29/20 [History] Cyanocobalamin/Cobamamide [Vitamin B-12 5,000 Mcg Tab Sl] 2 tab SL DAILY 04/29/20 [History] Aspirin 81 mg PO DAILY chew 05/01/20 [Rx] Isosorbide Mononitrate ER [Imdur] 30 mg PO DAILY #30 tab.er.24h 05/01/20 [Rx] Nicotine 21Mg/24Hr Patch [Habitrol] 1 patch TRANSDERM DAILY #14 patch 05/01/20 [Rx] Nitroglycerin Sl Tabs [Nitrostat] 0.4 mg SUBLINGUAL Q5M PRN #30 tab 05/01/20 [Rx] Follow up Appointment(s)/Referral(s): administrative program specialistdr [Other] - 1 Week Fan Garcia MD [Primary Care Provider] - 1-2 days Patient Instructions/Handouts: *Surgery [facility] - [place] Catheter Instructions, *[facility] - After Heart Catheterization - Photographers' Model Instructions, Angina (DC) Discharge Disposition: HOME SELF-CARE
== END 2020-05-01 21:10 | disposition home or self-care (01) | DRG 287 ==
LOC: EC 10:45 → 1SOBS 12:30 → OBSVTOIN 05-01 16:44
PROVIDERS: ADMIT Hospitalist; ATTEND Hospitalist
DX: I25.110 Atherosclerotic heart disease of native coronary artery with unstable angina pectoris (principal); I50.22 Chronic systolic (congestive) heart failure; E11.9 Type 2 diabetes mellitus without complications; E66.9 Obesity, unspecified; E78.00 Pure hypercholesterolemia, unspecified; E78.5 Hyperlipidemia, unspecified; F17.210 Nicotine dependence, cigarettes, uncomplicated; I11.0 Hypertensive heart disease with heart failure; I25.2 Old myocardial infarction; I25.5 Ischemic cardiomyopathy; I25.82 Chronic total occlusion of coronary artery; Z68.35 Body mass index [BMI] 35.0-35.9, adult; Z79.82 Long term (current) use of aspirin; Z79.84 Long term (current) use of oral hypoglycemic drugs; Z79.899 Other long term (current) drug therapy; Z80.42 Family history of malignant neoplasm of prostate; Z80.8 Family history of malignant neoplasm of other organs or systems; Z95.1 Presence of aortocoronary bypass graft; Z95.5 Presence of coronary angioplasty implant and graft; Z95.810 Presence of automatic (implantable) cardiac defibrillator; L40.9 Psoriasis, unspecified
CPT/HCPCS: 36415; 71046; 80053; 80061; 83735; 84484; 85025; 85610; 85730; 93005; 93306; 93459; 94760; 96365; 96376; 99291

== ENCOUNTER → 2021-05-30 | Outpatient (CLI) | payer MEDICARE ==
[2021-05-30 18:26] LABS: Basophils # (A) 0.04 X 10*3/uL (0.00-0.10); Basophils % (A) 0.6 %; Eosinophils # (A) 0.19 X 10*3/uL (0.04-0.35); Eosinophils % (A) 2.8 %; HCT 36.1 % (39.6-50.0); HGB 11.5 g/dL (13.0-17.0); Immature Grans, Automated 0.1 %; Lymphocytes # (A) 2.66 X 10*3/uL (0.90-5.00); Lymphocytes % (A) 39.3 %; MCH 30.7 pg (27.0-32.0); MCHC 31.9 g/dL (32.0-37.0); MCV 96.5 fL (80.0-97.0); Mean Platelet Volume 11.6 fL (9.5-12.2); Monocytes # (A) 0.68 X 10*3/uL (0.20-1.00); Monocytes % (A) 10.1 %; NRBC Per 100 WBC 0 /100 WBCS (0.0-0.0); Neutrophils # (A) 3.18 X 10*3/uL (1.80-7.70); Neutrophils % (A) 47.1 %; Platelet Count 170 X 10*3/uL (140-440); RBC 3.74 X 10*6/uL (4.40-5.60); RDW 13.6 % (11.5-14.5); WBC 6.76 X 10*3/uL (4.50-10.00)
[2021-05-30 18:36] LABS: African American GFR (CKD) 84.6 (60.0-200.0); Albumin 3.9 g/dL (3.8-4.9); Albumin/Globulin Ratio 1.61 (1.60-3.17); Anion Gap 8.9 mmol/L (10.00-18.00); BUN/Creat Ratio 13.83 Ratio (12.00-20.00); Blood Urea Nitrogen 14.8 mg/dL (9.0-27.0); Carbon Dioxide 24.4 mmol/L (20.0-27.5); Globulin 2.4 g/dL (1.6-3.3); Potassium 4.8 mmol/L (3.5-5.5); Total Bilirubin 0.4 mg/dL (0.30-1.20); Total Protein 6.3 g/dL (6.2-8.2)
[2021-05-30 19:14] LABS: Hepatitis B Surface AB- Quant 3.5 mIU/mL; Hepatitis B Surface Antibody Nonreactive (Nonreactive)
[2021-05-30 22:43] LABS: Hepatitis B Surface Antigen Nonreactive (Nonreactive); Hepatitis C IgG Antibody Nonreactive (Nonreactive)
== END | disposition home or self-care (01) ==
LOC: LABWHC1 12:58
PROVIDERS: ATTEND Physician Assistant
DX: L40.0 Psoriasis vulgaris (principal); Z79.899 Other long term (current) drug therapy
CPT/HCPCS: 36415; 80053; 85025; 86480; 86704; 86706; 86803; 87340

== ENCOUNTER → 2023-05-29 | Outpatient (CLI) | payer MEDICARE | END | disposition home or self-care (01) | LOC: LABWHC1 11:31 | PROVIDERS: ATTEND Nurse Practitioner Family | DX: L40.0 Psoriasis vulgaris (principal) | CPT/HCPCS: 36415; 86480 ==

== ENCOUNTER 2024-08-24 15:43 | Day surgery (SDC) | payer MEDICARE ==
[2024-08-24] MEDS: IV FLUID CONTINUATION 1,000 ML IV ONE (16:02)
[2024-08-24] MEDS: SODIUM CHLORIDE 0.9% 1,000 ML IV SCH (16:02)
[2024-08-24 16:18] LABS: Glucose,Whole Blood 104 mg/dL (70-110)
[2024-08-24] MEDS ORDERED: fentaNYL (PF) 50 MCG/ML 2 ML AMP ONE (18:14)
[2024-08-24] MEDS ORDERED: MIDAZOLAM 2 MG/2 ML VIAL ONE (18:14)
[2024-08-24] MEDS ORDERED: PROPOFOL 10 MG/ML 20 ML VIAL IV ONE (18:14)
[2024-08-24] MEDS: VANCOMYCIN 1,000 MG in SODIUM CHLORIDE 0.9% 250 ML IVPB STA (18:29)
[2024-08-24] MEDS: ceFAZolin 2 GM in DEXTROSE 5% IN WATER 50 ML IVPB PRN (18:48)
[2024-08-24] MEDS: ceFAZolin 1 GM in SODIUM CHLORIDE 0.9% IRRIG BTL 250 ML IRRIGATION PRN (18:50)
[2024-08-24] MEDS: ROPIVACAINE 5 MG/ML 30 ML VIAL MISCELLANE ONE (18:54)
[2024-08-24] MEDS: LIDOCAINE 1% INJ 10MG/ML (20 ML MDV) SQ ONE (18:54)
[2024-08-24] MEDS ORDERED: ACETAMINOPHEN TAB 325 MG TAB PO PRN (19:27)
--- NOTE | 2024-08-24 19:32 | P.EPPROC ---
- EP Procedure Note Electrophysiology Procedure Note: Diagnosis Ischemic cardiomyopathy, anterior wall scar from old [place], ejection fraction 35% Congestive heart failure class II-III On guideline directed medical treatment History of sick sinus syndrome Status post dual-chamber ICD with a dual coil ICD lead implanted in [place] Dual[facility]chamber ICD [facility] Procedure: Dual-chamber ICD generator change, device at [facility] Cinefluoroscopy of the leads Result: Dual chamber ICD explantation followed by implantation of an Aurelia Villalba DR dual ICD Chronic atrial lead: Pacing threshold 0.9 V at 0.5 ms, P waves 2.7 mV and pacing impedance 450 ohms Chronic RV ICD lead: Pacing threshold 1.5 V at 0.5 ms, R waves 5.5 mV, pacing impedance 380 ohms, high-voltage impedance 44 ohms Procedure details: Patient was brought to the EP lab in a fasting state. Written informed consent was obtained prior to the procedure. Options, pros and cons, benefits and risks and complications discussed by Dr. Fish with patient in detail prior to the procedure (shared decision making). Importance of continuing medical treatment emphasized. Alternatives discussed. Patient would like to proceed with dual-chamber ICD generator change Cinefluoroscopy the leads revealed a dual-chamber ICD. Dual coil ICD lead in stable position in the RV apex without any fractures or breaks Right atrial lead screwed in the right atrial appendage, no fractures or breaks The left pectoral area was prepped and draped as a protocol. IV antibiotics administered 1% lidocaine was used for local anesthesia. A 4 cm incision was made parallel to the deltopectoral groove, about 1.5 cm medial to it. The incision was carried down to the level of the pectoralis muscle and the subfas cial pocket was accessed. Hemostasis was assured. The old [facility] medical generator was explanted. The new Aurelia Villalba DR dual-chamber ICD implanted Pocket irrigated with antibiotic solution. Antibiotic pouch placed Leads connected to the biventricular ICD generator. Wound closed in 3 layers and dressed per protocol Dual ICD interrogated and programmed. Appropriate pacing parameters, antitachycardia therapies with antitachycardia pacing cardioversion defibrillations programmed. According to [facility] programming Patient tolerated the procedure well without any acute complications. See scanned device report in EMR for lead details
--- NOTE | 2024-08-24 19:33 | P.PRLE ---
RE: Jorge L Ordoñez Dear Fan Mr. Ordoñez underwent dual-chamber ICD generator change successfully without any acute complications. He will continue to follow-up with you and Dr. Fish as before and will continue all his heart failure medications unchanged. Thank you for entrusting me with the care of the patient Warm regards Sincerely Elliott Flynn
[2024-08-24] MEDS: traZODone HCL 100 MG TAB PO SCH (21:47)
[2024-08-24] MEDS: EZETIMIBE 10 MG TAB PO SCH (21:47)
[2024-08-24] MEDS: SACUBITRIL/VALSARTAN 24 MG-26 MG TABLET PO SCH (21:48)
[2024-08-24] MEDS: ATORVASTATIN 80 MG TAB PO SCH (21:48)
[2024-08-24] MEDS: carvediloL 12.5 MG TAB PO SCH (21:48)
[2024-08-24] MEDS: ACETAMINOPHEN IV (For NPO) 1,000 MG in EMPTY BAG 1 BAG IVPB ONE (21:56)
[2024-08-25] MEDS: ceFAZolin 2 GM in DEXTROSE 5% IN WATER 50 ML IVPB SCH (00:28)
[2024-08-25] MEDS: ASPIRIN 325 MG TAB PO SCH (08:12)
[2024-08-25] MEDS: ISOSORBIDE MONONITRATE ER 30 MG TAB.ER.24H PO SCH (08:12)
[2024-08-25 13:09] VITALS: BP 125/83; PULSE 94; RESP 16; TEMP 98
--- NOTE | 2024-08-26 20:06 | P.DS ---
Providers Attending physician: Elliott Flynn Primary care physician: Helen [facility] Hospital Course: Patient is doing well post ICD generator change No chest discomfort dizziness lightheadedness Vital stable Heart sounds are normal Breath sounds are clear Impression dual-chamber ICD generator change successful, Moses Known chronic ischemic cardiomyopathy and class II CHF, on guideline directed medical treatment Plan discharge home and follow-up in the office in 1 week in the device clinic Plan - Discharge Summary Discharge Rx Participant: Yes New Discharge Prescriptions: No Action Atorvastatin [Lipitor] 80 mg PO HS Ezetimibe [Zetia] 10 mg PO HS carvediloL [Coreg] 25 mg PO BID Cyanocobalamin/Cobamamide [Vitamin B-12 5,000 Mcg Tab Sl] 1 tab SL DAILY Isosorbide Mononitrate ER [Imdur] 30 mg PO DAILY #30 tab.er.24h Sacubitril/Valsartan [Entresto 24 mg-26 mg Tablet] 1 tab PO BID Semaglutide [Ozempic] 2 mg SQ MO Aspirin 325 mg PO DAILY traZODone HCL 100 mg PO HS rOPINIRole HCL 1 mg PO HS Secukinumab [Cosentyx Unoready Pen] 300 mg SQ Q30D Ibuprofen/Acetaminophen [Motrin Dual Action 125-250 mg] 2 tab PO DIRECTED Iron 28mg 28 mg PO DIRECTED Discharge Medication List Atorvastatin [Lipitor] 80 mg PO HS 09/30/16 [History] Ezetimibe [Zetia] 10 mg PO HS 01/06/19 [History] carvediloL [Coreg] 25 mg PO BID 01/06/19 [History] Cyanocobalamin/Cobamamide [Vitamin B-12 5,000 Mcg Tab Sl] 1 tab SL DAILY 04/29/20 [History] Isosorbide Mononitrate ER [Imdur] 30 mg PO DAILY #30 tab.er.24h 05/01/20 [Rx] Aspirin 325 mg PO DAILY 08/20/24 [History] Ibuprofen/Acetaminophen [Motrin Dual Action 125-250 mg] 2 tab PO DIRECTED 08/20/24 [History] Iron 28mg 28 mg PO DIRECTED 08/20/24 [History] Sacubitril/Valsartan [Entresto 24 mg-26 mg Tablet] 1 tab PO BID 08/20/24 [History] Secukinumab [Cosentyx Unoready Pen] 300 mg SQ Q30D 08/20/24 [History] Semaglutide [Ozempic] 2 mg SQ MO 08/20/24 [History] rOPINIRole HCL 1 mg PO HS 08/20/24 [History] traZODone HCL 100 mg PO HS 08/20/24 [History] Follow up Appointment(s)/Referral(s): Elliott Flynn MD [STAFF PHYSICIAN] - 08/31/24 4:00 pm (FOLLOW UP APPOINTMENT MADE WITH THE DEVICE CLINIC. ) Patient Instructions/Handouts: Pacemaker Generator Change (DC) Discharge Disposition: HOME SELF-CARE
== END 2024-08-25 14:05 | disposition home or self-care (01) ==
LOC: CATHEP 15:43 → 6NMEDSUR 19:27 → CATHEP 08-25 14:05
PROVIDERS: ATTEND Internal Medicine Clinical Cardiac Electrophysiology
DX: I25.10 Atherosclerotic heart disease of native coronary artery without angina pectoris (principal); I65.23 Occlusion and stenosis of bilateral carotid arteries; I25.5 Ischemic cardiomyopathy; I25.2 Old myocardial infarction; I11.0 Hypertensive heart disease with heart failure; I50.9 Heart failure, unspecified; E78.5 Hyperlipidemia, unspecified; Z87.891 Personal history of nicotine dependence; Z95.810 Presence of automatic (implantable) cardiac defibrillator; Z45.02 Encounter for adjustment and management of automatic implantable cardiac defibrillator; Z88.8 Allergy status to other drugs, medicaments and biological substances; Z79.02 Long term (current) use of antithrombotics/antiplatelets; Z79.84 Long term (current) use of oral hypoglycemic drugs; Z79.899 Other long term (current) drug therapy
CPT/HCPCS: 33263; C1721; J3370; J0690 ×2; J2003; J2795